=== PATIENT | male | born 1940 | race Caucasian/White ===

== ENCOUNTER 2019-08-22 10:44 | Outpatient (CLI) | payer MEDICARE ==
--- NOTE | 2019-08-23 11:11 | XRAY Report ---
Reason: PAIN IN LT FOOT Procedure Date: 08/22/2019 Accession Number: [id number] / [id number] Procedure: XR - Foot 3 View LT CPT Code: Final Report FULL RESULT: EXAM: LEFT FOOT RADIOGRAPHY EXAM DATE: 08/22/2019 10:56 AM. CLINICAL HISTORY: PAIN IN LT FOOT. COMPARISON: None. TECHNIQUE: 3 views. FINDINGS: Bones: No acute fractures or suspicious bone lesions. There is osteophyte formation at distal phalanx of great toe, most prominent medially. Posterior and inferior calcaneal spurring is present. Joints: No subluxation or dislocation. Severe joint space narrowing and osteophyte formation at first MTP joint. Mild interphalangeal joint space narrowing. Mild hallux valgus. Soft Tissues: No significant soft tissue swelling. IMPRESSION: 1. No acute fracture or dislocation. 2. Degenerative changes of left foot, most severe at first MTP joint. 3. Mild hallux valgus. RADIA
== END 2019-08-22 10:45 | disposition home or self-care (01) ==
LOC: DI 10:44
PROVIDERS: ATTEND Podiatrist
DX: M19.072 Primary osteoarthritis, left ankle and foot (principal); M20.12 Hallux valgus (acquired), left foot

== ENCOUNTER 2021-02-12 08:00 | Outpatient (CLI) | payer MEDICARE ==
[2021-02-12 18:11] LABS: CALCIUM 8.6 mg/dL (8.5-10.3); POTASSIUM 5.4 mmol/L (3.5-5.0)
== END 2021-02-12 23:59 | disposition home or self-care (01) ==
LOC: LAB.WCP 08:00
PROVIDERS: ATTEND Family Medicine
DX: N18.31 Chronic kidney disease, stage 3a (principal)
CPT/HCPCS: 36415; 80048

== ENCOUNTER 2021-02-21 08:00 | Outpatient (CLI) | payer MEDICARE ==
[2021-02-21 18:02] LABS: BILIRUBIN,URINE NEGATIVE (NEGATIVE); GLUCOSE, URINE (UA) NEGATIVE (NEGATIVE); KETONES,URINE (UA) NEGATIVE (NEGATIVE); LEUKOCYTE ESTERASE, URINE NEGATIVE (NEGATIVE); NITRITE,URINE NEGATIVE (NEGATIVE); OCCULT BLOOD,URINE NEGATIVE (NEGATIVE); PH,URINE 5.5 PH (5.0-7.5); PROTEIN,URINE 100 mg/dL (NEGATIVE); UROBILINOGEN,URINE 0.2 (NORMAL) E.U./dL (NORMAL)
[2021-02-21 18:06] LABS: CREATININE 2.4 mg/dL (0.6-1.2); POTASSIUM 5.8 mmol/L (3.5-5.0)
[2021-02-21 18:09] LABS: BACTERIA,URINE Rare /HPF (None Seen); CLARITY,URINE CLEAR (CLEAR); MUCUS,URINE Few Strands; RBC,URINE 0-5 /HPF (0-5); SQUAMOUS EPITHELIAL CELL,UR RARE Squamous (<= Few); WBC,URINE 0-3 /HPF (0-3)
== END 2021-02-21 23:59 | disposition home or self-care (01) ==
LOC: LAB.WCP 08:00
PROVIDERS: ATTEND Family Medicine
DX: N17.9 Acute kidney failure, unspecified (principal)
CPT/HCPCS: 36415; 80048; 81001

== ENCOUNTER 2021-03-09 11:09 | Outpatient (CLI) | payer MEDICARE ==
--- NOTE | 2021-03-09 13:46 | Ultrasound Report ---
PROCEDURE: Retroperitoneal INDICATIONS: ACUTE ON CHRONIC KIDNEY INJURY TECHNIQUE: Real-time scanning was performed of the kidneys and bladder, with image documentation. COMPARISON: None FINDINGS: Kidneys: Kidneys are normal in size. Right kidney measures 12.5 cm long; left kidney measures 11.6 cm long. Right renal cortical thickness is 1.8 cm; left renal cortical thickness is 1.9 cm. Renal c ortical echotexture is normal. No hydronephrosis or nephrolithiasis. No suspicious solid mass lesio ns. Multiple bilateral renal cysts are noted. Bladder: Pre-void bladder volume is 148 mL. Post-void residual is 29 mL. Pre-void images demonstra te no intraluminal masses or stones. On pre-void images, bilateral ureteral jets are noted with colo r Doppler interrogation. (Of note, ureteral jets may not be detectable in up to 25% of cases due to insufficient differences in specific gravity between ureteral and bladder urine). Prostate is enlarged measuring 5.0 x 4.0 x 6.4 cm. Miscellaneous: No free pelvic fluid. IMPRESSION: 1. Normal-sized kidneys with no evidence of hydronephrosis. 2. Enlarged prostate. Reviewed by: Inocencio Foley MD on 03/09/2021 12:44 PM KENNET[facility] Approved by: Inocencio Foley MD on 03/09/2021 12:44 PM KENNETH Station ID: [id number]
== END 2021-03-09 11:10 | disposition home or self-care (01) ==
LOC: DI 11:09
PROVIDERS: ATTEND Family Medicine
DX: N40.0 Benign prostatic hyperplasia without lower urinary tract symptoms (principal)

== ENCOUNTER 2022-01-31 12:53 | Outpatient (CLI) | payer MEDICARE ==
--- NOTE | 2022-01-31 15:33 | XRAY Report ---
PROCEDURE: Chest 2 View X-Ray INDICATIONS: Abnormal EKG results TECHNIQUE: 2 view(s) of the chest. COMPARISON: None. FINDINGS: Surgical changes and devices: None. Lungs and pleura: No pleural effusions or pneumothorax. Lungs are clear. Mediastinum: Mediastinal contours are normal. Heart size is normal. Bones and chest wall: No suspicious bony abnormalities. Soft tissues appear unremarkable. IMPRESSION: Normal two-view chest x-ray Reviewed by: Girma Malone MD on 01/31/2022 2:32 PM AKDT Approved by: Girma Malone MD on 01/31/2022 2:32 PM AKDT Station ID: [id number]
== END 2022-01-31 12:54 | disposition home or self-care (01) ==
LOC: DI.N 12:53
PROVIDERS: ATTEND Family Medicine
DX: I50.9 Heart failure, unspecified (principal); R41.82 Altered mental status, unspecified

== ENCOUNTER 2022-02-06 08:33 | Outpatient (CLI) | payer MEDICARE ==
--- NOTE | 2022-02-06 10:03 | CT Report ---
PROCEDURE: HEAD WO INDICATIONS: ALTERED MENTAL STATUS TECHNIQUE: Noncontrast 4.5 mm thick angled axial sections acquired from the foramen magnum to the vertex. For r adiation dose reduction, the following was used: automated exposure control, adjustment of mA and/or kV according to patient size. COMPARISON: None. FINDINGS: Image quality: Excellent. CSF spaces: Basal cisterns are patent. No extra-axial fluid collections. Ventricles are normal in size and shape. Brain: No midline shift. No intracranial masses or hemorrhage. 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 Katz-white matter interface is normal. There is diffuse, cerebral volume loss. There are periventricular and subcortical white matter chron ic microvascular ischemic changes. Atherosclerotic calcification noted in the internal carotid arteri es. Skull and face: Calvarium and visualized facial bones are intact, without suspicious lesions. Sinuses: Mucosal thickening noted in the visualized left maxillary sinus. The mastoids are clear. IMPRESSION: No acute intracranial disease process. Reviewed by: Veronica Rowan MD, PhD on 02/06/2022 10:02 AM PDT Approved by: Veronica Rowan MD, PhD on 02/06/2022 10:02 AM PDT Station ID: [id number]
== END 2022-02-06 08:34 | disposition home or self-care (01) ==
LOC: DI 08:33
PROVIDERS: ATTEND Family Medicine
DX: R41.82 Altered mental status, unspecified (principal)